=== PATIENT | male | born 1960 | race Caucasian/White ===

== ENCOUNTER 2021-02-05 00:03 | Emergency (ER) | payer OTHER ==
[2021-02-05 01:26] VITALS: TEMP 97.5; BMI 28.1
[2021-02-05] MEDS ORDERED: IBUPROFEN 600 MG TABLET (FP) PO ONE ×2 (06:04→06:10)
[2021-02-05 11:27] VITALS: BP 133/86; PULSE 78
== END 2021-02-05 11:56 | disposition home or self-care (01) ==
LOC: JER 00:03
DX: F10.220 Alcohol dependence with intoxication, uncomplicated (principal)
CPT/HCPCS: 70450-TC; 72125-TC; 82962; 99285-25